=== PATIENT | male | born 1960 ===

== ENCOUNTER 2017-12-29 02:47 | Emergency (ER) | payer OTHER ==
[~2017-12-29] VITALS: Ht 182.9 cm; Wt 102.1 kg
[2017-12-29] MEDS ORDERED: ADDERALL (02:58)
[2017-12-29] MEDS ORDERED: CHOL MED (02:58)
[2017-12-29] MEDS ORDERED: BP MED (02:58)
[2017-12-29] MEDS ORDERED: PHENYLEPHRINE 1% (EXTRA STR) NASAL SPRAY NS ONE (02:59)
[2017-12-29] MEDS ORDERED: SILVER NITRATE APPLICATOR STICK EACH TP ONE ×2 (03:00→03:02)
[2017-12-29] MEDS ORDERED: MISCELLANEOUS MED NS ONE (03:00)
[2017-12-29 03:28] VITALS: BP 148/71
--- NOTE | 2017-12-29 03:28 | NUR ---
Patient discharged to home in stable conditon. Written and verbal after care instructions given. Patient verbalizes understanding of instructions.
== END 2017-12-29 03:29 | disposition home or self-care (01) ==
LOC: ER 02:54
DX: R04.0 Epistaxis (principal); I10 Essential (primary) hypertension; E78.00 Pure hypercholesterolemia, unspecified
CPT/HCPCS: 30901; 99284; A4663